=== PATIENT | male | born 1960 | race African-American/Black ===

== ENCOUNTER 2017-03-27 11:53 | Inpatient (IN) | payer OTHER ==
[2017-03-27 12:29] VITALS: BMI 27.3
--- NOTE | 2017-03-27 14:06 | HP ---
CIWA Score - CIWA Score Nausea/Vomitin-No Nausea/No Vomiting Muscle Tremors: 3 Anxiety: 4-Mod. Anxious/Guarded Agitation: 4-Moderately Restless Paroxysmal Sweats: No Perspiration Orientation: 0-Oriented Tacttile Disturbances: 3-Moderate Itch/Numb/Burn Auditory Disturbances: 0-None Visual Disturbances: 0-None Headache: 0-None Present CIWA-Ar Total Score: 14 Admission ROS BHS - HPI Chief Complaint: WITHDRAWAL SX FROM ALCOHOL Allergies/Adverse Reactions: Allergies Allergy/AdvReac Type Severity Reaction Status Date / Time No Known Allergies Allergy Verified 03/27/17 12:37 History of Present Illness: 56 Y/O AA/MALE WITH A HX OF ALCOHOL DEPENDENCE SEEKING DETOX TX. OXY IN TOXICOLOGY BUT PT STATES "MY FRIEND GAVE ME SOMETHING AND SAYS IT'S ASPIRIN". Exam Limitations: No Limitations - Ebola screening Have you traveled outside of the country in the last 21 days: No (N) Have you had contact with anyone from an Ebola affected area: No Have you been sick,other than usual withdrawal symptoms: No Do you have a fever: No - Review of Systems Constitutional: Changes in sleep EENT: reports: Blurred Vision (NEEDS GLASSES), Tearing, Nose Congestion (USES SALINE SOLUTION), Dental Problems (UPPER PARTIAL) Respiratory: reports: No Symptoms reported Cardiac: reports: No Symptoms Reported GI: reports: Nausea, Vomiting : reports: No Symptoms Reported Musculoskeletal: reports: Back Pain, Joint Pain, Muscle Pain Integumentary: reports: Dryness Neuro: reports: Tremors, Unsteady Gait Endocrine: reports: No Symptoms Reported Hematology: reports: No Symptoms Reported Psychiatric: reports: Orientated x3, Anxious, Depressed Other Systems: Reviewed and Negative Patient History - Patient Medical History Hx Anemia: No Hx Asthma: No Hx Chronic Obstructive Pulmonary Disease (COPD): No Hx Cancer: No Hx Cardiac Disorders: No Hx Congestive Heart Failure: No Hx Hypertension: No Hx Hypercholesterolemia: No Hx Pacemaker: No HX Cerebrovascular Accident: No Hx Seizures: No Hx Dementia: No Hx Diabetes: No Hx Gastrointestinal Disorders: Yes (Pt has a hx of acid reflux.) Hx Liver Disease: No Hx Genitourinary Disorders: No Hx Sexually Transmitted Disorders: No Hx Renal Disease (ESRD): No Hx Thyroid Disease: No Hx Human Immunodeficiency Virus (HIV): No (NEGATIVE HX) Hx Hepatitis C: No Hx Depression: Yes (THERAPY IN THE PAST; NO MED.) Hx Suicide Attempt: No Hx Bipolar Disorder: No Hx Schizophrenia: No - Patient Surgical History Past Surgical History: Yes Hx Neurologic Surgery: No Hx Cataract Extraction: No Hx Cardiac Surgery: No Hx Lung Surgery: No Hx Breast Surgery: No Hx Breast Biopsy: No Hx Abdominal Surgery: No Hx Appendectomy: No Hx Cholecystectomy: No Hx Genitourinary Surgery: Yes (SX FOR PROSTATE CA-RADIATION SEED IMPLANT IN 2014 ) Hx Orthopedic Surgery: No Anesthesia Reaction: No - PPD History Previous Implant?: Yes Documented Results: Negative w/o proof Implanted On Prior [facility] Admission?: Yes Date: 06/17/13 Results: 0 mm PPD to be Administered?: Yes - Reproductive History Patient is a Female of Child Bearing Age (11 -55 yrs old): No (MALE) - Smoking Cessation Smoking history: Current every day smoker Have you smoked in the past 12 months: Yes Aproximately how many cigarettes per day: 10 Cigars Per Day: 0 Hx Chewing Tobacco Use: No Initiated information on smoking cessation: Yes 'Breaking Loose' booklet given: 03/27/17 - Substance & Tx. History Hx Alcohol Use: Yes (BEER/VODKA/GIN) Hx Substance Use: No (DENIES) Substance Use Type: Alcohol Hx Substance Use Treatment: Yes ([facility], [facility]) - Substances Abused Alcohol Route: Oral Frequency: Daily Amount used: 2-3 6PKS BEER/ FIFTH OF VODKA Age of first use: 6 Date of Last Use: 03/27/17 Family Disease History - Family Disease History Family History: Denies Admission Physical Exam [facility] - Vital Signs Vital Signs: Vital Signs - 24 hr 03/27/17 12:27 Temperature 98.4 F Pulse Rate 102 H Respiratory 20 Rate Blood Pressure 132/73 - Physical General Appearance: Yes: Moderate Distress, Irritable, Anxious HEENTM: Yes: EOMI, Normocephalic, TEE, Pharynx Normal Respiratory: Yes: Chest Non-Tender, Lungs Clear, Normal Breath Sounds, No Respiratory Distress Neck: Yes: No masses,lesions,Nodules, Supple, Trachea in good position Breast: Yes: Breast Exam Deferred Cardiology: Yes: Regular Rhythm, Regular Rate, S1, S2 Abdominal: Yes: Normal Bowel Sounds, Non Tender, Flat Genitourinary: Yes: Other (N/C) Back: Yes: Within Normal Limits Musculoskeletal: Yes: full range of Motion, Gait Steady Extremities: Yes: Normal Range of Motion, Non-Tender Neurological: Yes: supervisor wash house II-XII NML intact, Fully Oriented, Alert, Motor Strength 5/5 Integumentary: Yes: Dry, Warm Lymphatic: Yes: Within Normal Limits - Diagnostic (1) Alcohol dependence with uncomplicated withdrawal Current Visit: Yes Status: Acute (2) GERD (gastroesophageal reflux disease) Current Visit: Yes Status: Chronic Qualifiers: Esophagitis presence: esophagitis presence not specified Qualified Code(s) : K21.9 - Gastro-esophageal reflux disease without esophagitis (3) Degeneration of cervical intervertebral disc Current Visit: Yes Status: Chronic (4) Nicotine dependence Current Visit: Yes Status: Acute Qualifiers: Nicotine product type: cigarettes Substance use status: in withdrawal Qualified Code(s): F17.213 - Nicotine dependence, cigarettes, with withdrawal Cleared for Admission [facility] - Detox or Rehab [facility] Level of Care: Medically Managed Detox Regimen/Protocol: Librium S Breath Alcohol Content Breath Alcohol Content: 0.048 Urine Drug Screen - Results Drug Screen Negative: No Urine Drug Screen Results: OXY-Oxycodone
[2017-03-27] MEDS ORDERED: MAGNESIUM CITRATE 300 ML BOTTLE PO PRN (14:27)
[2017-03-27] MEDS ORDERED: P-EPHED 60MG/TRIPROLIDI 2.5MG TABLET PO PRN (14:27)
[2017-03-27] MEDS ORDERED: MAG HYDROX/AL HYDROX/SIMETH 30 ML UNIT-DOSE CUP PO PRN (14:27)
[2017-03-27] MEDS ORDERED: MAGNESIUM HYDROX 2400MG/30ML ORAL SUSPENSION 30 ML CUP PO PRN (14:27)
[2017-03-27] MEDS ORDERED: ACETAMINOPHEN 325 MG TABLET (FP) PO PRN (14:27)
[2017-03-27] MEDS ORDERED: IBUPROFEN 400 MG TABLET (FP) PO PRN (14:27)
[2017-03-27] MEDS ORDERED: LOPERAMIDE HCL 2 MG CAPSULE PO PRN (14:27)
[2017-03-27] MEDS ORDERED: guaiFENesin/D-METHORPHAN HB 10 ML UNIT-DOSE CUPS PO PRN (14:27)
[2017-03-27] MEDS ORDERED: chlordiazePOXIDE HCL 25 MG CAPSULE PO ONE (15:21)
[2017-03-27] MEDS: SODIUM CHLORIDE NASAL SPRAY 44 ML BOTTLE NS SCH ×2 (16:25→22:41)
[2017-03-27] MEDS: PANTOPRAZOLE 40 MG TABLET (FP) PO SCH (16:25)
[2017-03-27] MEDS: NICOTINE 14 MG/24 HOURS TOPICAL PATCH TD SCH (16:34)
[2017-03-27 17:02] LABS: HEMATOCRIT 46.2 % (35.4-49); HEMOGLOBIN 15.4 GM/dL (11.7-16.9); MCH 32.9 pg (25.7-33.7); MCHC 33.3 g/dl (32.0-35.9); MEAN CELL VOLUME 98.7 fl (80-96); MEAN PLT VOLUME 9.4 fl (7.5-11.1); PLATELET COUNT 245 K/MM3 (134-434); RBC 4.68 M/mm3 (4.00-5.60); RDW 14.4 % (11.9-15.9); WHITE BLOOD COUNT 10.9 K/mm3 (4.0-10.0)
[2017-03-27 17:30] LABS: ANION GAP 11 (8-16); BILIRUBIN,TOTAL 0.4 mg/dL (0.2-1.0); BLOOD UREA NITROGEN 16 mg/dL (7-18); CALCIUM 9.7 mg/dL (8.5-10.1); CHLORIDE 101 mmol/L (98-107); CO2 27 mmol/L (21-32); GLUCOSE,RANDOM 73 mg/dL (74-106); POTASSIUM 4.1 mmol/L (3.5-5.1); SGOT/AST 30 U/L (15-37); SGPT/ALT 27 U/L (12-78); SODIUM 139 mmol/L (136-145)
[2017-03-27 17:31] LABS: ALK PHOS 57 U/L (45-117); TOT PROT 7.8 g/dl (6.4-8.2)
--- NOTE | 2017-03-27 17:40 | CONSULT ---
[facility] Psychiatric Consult - Data Date of interview: 03/27/17 Admission source: [facility] Identifying data: Second admission to [facility] for this 56 y/o AA male seeking detox treatment on for alcohol dependence.Patient is ,a father of three,domiciled,unemployed and supported on Public Assistance. Substance Abuse History: Confirmed by patient in this session.Se current [facility] report for details : Smoking history: Current every day smoker. Have you smoked in the past 12 months: Yes. Aproximately how many cigarettes per day: 10. Cigars Per Day: 0. Hx Chewing Tobacco Use: No. Initiated information on smoking cessation: Yes. 'Breaking Loose' booklet given: 03/27/17. - Substance & Tx. History. Hx Alcohol Use: Yes (BEER/VODKA/GIN). Hx Substance Use: No ( DENIES). Substance Use Type: Alcohol. Hx Substance Use Treatment: Yes ( [facility] [place]). - Substances Abused. Alcohol. Route: Oral. Frequency: Daily. Amount used: 2-3 6PKS BEER/ FIFTH OF VODKA. Age of first use: 6. Date of Last Use: 03/27/17 Medical History: GERD and a history of prostatic cancer (radiation therapy with seed implant in 2015). Psychiatric History: Distant history of one psychiatric hospitalization (years ago).Patient has no recall of the diagnosis made at the time.Never followed up after discharge.No psychotropic medications or contact with psychiatric OPD care providers.Mr Cabrera denies history of suicide attempts. Physical/Sexual Abuse/Trauma History: Patient denies. Additional Comment: Urine Drug Screen Results: OXY-Oxycodone.Noted. Mental Status Exam - Mental Status Exam Alert and Oriented to: Time, Place, Person Cognitive Function: Good Patient Appearance: Well Groomed Mood: Hopeful, Euthymic Affect: Appropriate, Normal Range Patient Behavior: Fatigued, Cooperative Speech Pattern: Clear, Appropriate Voice Loudness: Normal Thought Process: Intact, Goal Oriented Thought Disorder: Not Present Hallucinations: Denies Suicidal Ideation: Denies Homicidal Ideation: Denies Insight/Judgement: Poor Sleep: Poorly, Difficulty falling asleep Appetite: Good Muscle strength/Tone: Normal Gait/Station: Normal Psychiatric Findings - Problem List ([place] 1, 2,3) (1) Alcohol dependence with uncomplicated withdrawal Current Visit: Yes Status: Acute (2) Nicotine dependence Current Visit: Yes Status: Acute Qualifiers: Nicotine product type: cigarettes Substance use status: in withdrawal Qualified Code(s): F17.213 - Nicotine dependence, cigarettes, with withdrawal (3) Insomnia Current Visit: Yes Status: Acute - Initial Treatment Plan Initial Treatment Plan: Psychoeducation.Support.Detoxification initiated.Sleep hygiene discussed in this session.Ambien 5 mg po hs prn.Patient made aware of risk for parasomnias.Mr Cabrera expressed agreement with this careplan.Observation.
[2017-03-27] MEDS: chlordiazePOXIDE HCL 25 MG CAPSULE PO SCH ×2 (18:30→22:42)
[2017-03-27] MEDS: NICOTINE POLACRILEX 2 MG GUM BUC PRN ×2 (18:36→22:44)
[2017-03-27 19:31] LABS: SICKLE CELL SCREEN NEGATIVE (NEGATIVE)
[2017-03-27] MEDS: FLUTICASONE PROP 0.05% 16 GM NASAL SPRAY NS SCH (19:47)
[2017-03-27] MEDS: AMMONIUM LACTATE 12% LOTION 225 GM BOTTLE TP SCH (22:40)
[2017-03-27] MEDS: THIAMINE HCL 100 MG TABLET (FP) PO SCH (22:40)
[2017-03-27] MEDS: ZOLPIDEM TARTRATE 5 MG TABLET PO PRN (22:42)
[2017-03-28] MEDS: chlordiazePOXIDE HCL 25 MG CAPSULE PO SCH ×4 (05:59→22:24)
[2017-03-28] MEDS: SODIUM CHLORIDE NASAL SPRAY 44 ML BOTTLE NS SCH ×3 (06:00→22:25)
[2017-03-28] MEDS: FLUTICASONE PROP 0.05% 16 GM NASAL SPRAY NS SCH (10:23)
[2017-03-28] MEDS: AMMONIUM LACTATE 12% LOTION 225 GM BOTTLE TP SCH ×2 (10:24→22:25)
[2017-03-28] MEDS: NICOTINE 14 MG/24 HOURS TOPICAL PATCH TD SCH (10:24)
[2017-03-28] MEDS: PRENATAL VITAMINS W/ FOLIC ACID TABLET (FP) PO SCH (10:24)
[2017-03-28] MEDS: PANTOPRAZOLE 40 MG TABLET (FP) PO SCH (10:25)
[2017-03-28] MEDS: NICOTINE POLACRILEX 2 MG GUM BUC PRN ×2 (10:27→13:13)
[2017-03-28] MEDS: MENTHOL/PHENOL 1 EACH UD MM PRN (10:27)
[2017-03-28] MEDS ORDERED: LIDOCAINE VISCOUS 2% ORAL/TOP 20 ML UNIT-DOSE CUP MM PRN (11:00)
--- NOTE | 2017-03-28 11:29 | EKG ---
Test Reason : Blood Pressure : / mmHG Vent. Rate : 100 BPM Atrial Rate : 100 BPM P-R Int : 148 ms QRS Dur : 078 ms QT Int : 346 ms P-R-T Axes : 049 040 044 degrees QTc Int : 446 ms NORMAL SINUS RHYTHM NORMAL ECG NO PREVIOUS ECGS AVAILABLE BASELINE ARTIFACT Confirmed by GARY BERNARD, NORI ([id number]) on 03/28/2017 11:29:18 AM Referred By: Confirmed By:NORI VEGA MD
[2017-03-28] MEDS: chlordiazePOXIDE HCL 25 MG CAPSULE PO PRN (14:05)
--- NOTE | 2017-03-28 16:57 | PN ---
[facility] CIWA - CIWA Score Nausea/Vomitin-No Nausea/No Vomiting Muscle Tremors: 4-Moderate,w/Arms Extend Anxiety: 3 Agitation: 3 Paroxysmal Sweats: 3 Orientation: 0-Oriented Tacttile Disturbances: 3-Moderate Itch/Numb/Burn Auditory Disturbances: 1-Very Mild Visual Disturbances: 2-Mild Sensitivity Headache: 0-None Present CIWA-Ar Total Score: 19 BHS Progress Note (SOAP) Subjective: Tremors, Fatigue, Sweating. Objective: PT. A & O X 3. NO ACUTE DISTRESS. 03/28/17 16:56 Vital Signs Temperature 97.5 F L 03/28/17 13:49 Pulse Rate 102 H 03/28/17 13:49 Respiratory Rate 20 03/28/17 13:49 Blood Pressure 118/75 03/28/17 13:49 O2 Sat by Pulse Oximetry (%) Laboratory Tests 03/27/17 03/27/17 03/27/17 13:00 15:00 15:00 WBC 10.9 H RBC 4.68 Hgb 15.4 Hct 46.2 MCV 98.7 H MCH 32.9 MCHC 33.3 RDW 14.4 Plt Count 245 MPV 9.4 Sickle Cell Screen Negative Sodium 139 Potassium 4.1 Chloride 101 Carbon Dioxide 27 Anion Gap 11 BUN 16 Creatinine 1.0 Creat Clearance w eGFR > 60 Random Glucose 73 L D Calcium 9.7 Total Bilirubin 0.4 D AST 30 ALT 27 Alkaline Phosphatase 57 Total Protein 7.8 Albumin 4.0 RPR Titer HIV 1&2 Antibody Screen Negative HIV P24 Antigen Negative 03/27/17 15:00 WBC RBC Hgb Hct MCV MCH MCHC RDW Plt Count MPV Sickle Cell Screen Sodium Potassium Chloride Carbon Dioxide Anion Gap BUN Creatinine Creat Clearance w eGFR Random Glucose Calcium Total Bilirubin AST ALT Alkaline Phosphatase Total Protein Albumin RPR Titer Nonreactive HIV 1&2 Antibody Screen HIV P24 Antigen LABS NOTED. UA RESULTS PENDING. 03/28/17 16:57 Assessment: 03/28/17 16:56 WITHDRAWAL SYMPTOMS. Plan: CONTINUE DETOX.
[2017-03-28 17:52] LABS: URINE APPEARANCE CLEAR; URINE BILIRUBIN NEGATIVE (NEGATIVE); URINE BLOOD NEGATIVE (NEGATIVE); URINE COLOR YELLOW; URINE GLUCOSE (UA) NEGATIVE (NEGATIVE); URINE KETONE NEGATIVE (NEGATIVE); URINE LEUK ESTERASE NEGATIVE (NEGATIVE); URINE NITRITE NEGATIVE (NEGATIVE); URINE PROTEIN NEGATIVE (NEGATIVE); URINE UROBILINOGEN NEGATIVE mg/dL (0.2-1.0)
[2017-03-28] MEDS: THIAMINE HCL 100 MG TABLET (FP) PO SCH (22:24)
[2017-03-28] MEDS: ZOLPIDEM TARTRATE 5 MG TABLET PO PRN (22:25)
[2017-03-29] MEDS: hydrOXYzine PAMOATE 50 MG CAPSULE (FP) PO PRN (03:56)
[2017-03-29] MEDS: chlordiazePOXIDE HCL 25 MG CAPSULE PO SCH ×2 (05:50→10:23)
[2017-03-29] MEDS: SODIUM CHLORIDE NASAL SPRAY 44 ML BOTTLE NS SCH ×3 (06:53→22:23)
[2017-03-29] MEDS: PRENATAL VITAMINS W/ FOLIC ACID TABLET (FP) PO SCH (10:23)
[2017-03-29] MEDS: PANTOPRAZOLE 40 MG TABLET (FP) PO SCH (10:24)
[2017-03-29] MEDS: FLUTICASONE PROP 0.05% 16 GM NASAL SPRAY NS SCH (10:24)
[2017-03-29] MEDS: AMMONIUM LACTATE 12% LOTION 225 GM BOTTLE TP SCH ×2 (10:26→22:23)
[2017-03-29] MEDS: NICOTINE 14 MG/24 HOURS TOPICAL PATCH TD SCH (10:27)
[2017-03-29] MEDS: NICOTINE POLACRILEX 2 MG GUM BUC PRN (12:30)
[2017-03-29] MEDS: MENTHOL/PHENOL 1 EACH UD MM PRN (12:31)
--- NOTE | 2017-03-29 13:19 | PN ---
S CIWA - CIWA Score Nausea/Vomitin-Mild Nausea/No Vomiting Muscle Tremors: None Anxiety: 4-Mod. Anxious/Guarded Agitation: 4-Moderately Restless Paroxysmal Sweats: 4-Forehead w/Sweat Beads Orientation: 0-Oriented Tacttile Disturbances: 1-Very Mild Itch/Numbness Auditory Disturbances: 0-None Visual Disturbances: 0-None Headache: 2-Mild CIWA-Ar Total Score: 16 BHS Progress Note (SOAP) Subjective: Sweating, nausea, interrupted sleep, chills Objective: 03/29/17 13:17 Last Vital Signs Temp Pulse Resp BP Pulse Ox 97.0 F L 86 18 118/75 03/29/17 09:06 03/29/17 09:06 03/29/17 09:06 03/29/17 09:06 Laboratory Tests 03/27/17 03/27/17 03/27/17 13:00 15:00 15:00 WBC 10.9 H RBC 4.68 Hgb 15.4 Hct 46.2 MCV 98.7 H MCH 32.9 MCHC 33.3 RDW 14.4 Plt Count 245 MPV 9.4 Sickle Cell Screen Negative Sodium 139 Potassium 4.1 Chloride 101 Carbon Dioxide 27 Anion Gap 11 BUN 16 Creatinine 1.0 Creat Clearance w eGFR > 60 Random Glucose 73 L D Calcium 9.7 Total Bilirubin 0.4 D AST 30 ALT 27 Alkaline Phosphatase 57 Total Protein 7.8 Albumin 4.0 Urine Color Urine Appearance Urine pH Ur Specific [place] Urine Protein Urine Glucose (UA) Urine Ketones Urine Blood Urine Nitrite Urine Bilirubin Urine Urobilinogen Ur Leukocyte Esterase RPR Titer HIV 1&2 Antibody Screen Negative HIV P24 Antigen Negative 03/27/17 03/27/17 15:00 15:17 WBC RBC Hgb Hct MCV MCH MCHC RDW Plt Count MPV Sickle Cell Screen Sodium Potassium Chloride Carbon Dioxide Anion Gap BUN Creatinine Creat Clearance w eGFR Random Glucose Calcium Total Bilirubin AST ALT Alkaline Phosphatase Total Protein Albumin Urine Color Yellow Urine Appearance Clear Urine pH 5.0 Ur Specific [place] 1.025 Urine Protein Negative Urine Glucose (UA) Negative Urine Ketones Negative Urine Blood Negative Urine Nitrite Negative Urine Bilirubin Negative Urine Urobilinogen Negative Ur Leukocyte Esterase Negative RPR Titer Nonreactive HIV 1&2 Antibody Screen HIV P24 Antigen Labs noted Assessment: 03/29/17 13:18 Withdrawal symptoms Plan: Continue detox
[2017-03-29] MEDS: chlordiazePOXIDE 5 MG CAPSULE PO SCH ×2 (17:07→22:24)
[2017-03-29] MEDS: THIAMINE HCL 100 MG TABLET (FP) PO SCH (22:24)
[2017-03-29] MEDS: ZOLPIDEM TARTRATE 5 MG TABLET PO PRN (22:26)
[2017-03-30] MEDS: chlordiazePOXIDE HCL 25 MG CAPSULE PO PRN ×2 (02:49→13:21)
[2017-03-30] MEDS: SODIUM CHLORIDE NASAL SPRAY 44 ML BOTTLE NS SCH ×3 (05:24→22:18)
[2017-03-30] MEDS: chlordiazePOXIDE 5 MG CAPSULE PO SCH ×2 (05:24→10:25)
[2017-03-30] MEDS: MENTHOL/PHENOL 1 EACH UD MM PRN ×2 (05:26→14:09)
[2017-03-30] MEDS: FLUTICASONE PROP 0.05% 16 GM NASAL SPRAY NS SCH (10:24)
[2017-03-30] MEDS: PANTOPRAZOLE 40 MG TABLET (FP) PO SCH (10:25)
[2017-03-30] MEDS: AMMONIUM LACTATE 12% LOTION 225 GM BOTTLE TP SCH ×2 (10:26→22:19)
[2017-03-30] MEDS: PRENATAL VITAMINS W/ FOLIC ACID TABLET (FP) PO SCH (10:27)
[2017-03-30] MEDS: NICOTINE 14 MG/24 HOURS TOPICAL PATCH TD SCH (10:27)
[2017-03-30] MEDS: NICOTINE POLACRILEX 2 MG GUM BUC PRN ×2 (10:33→20:45)
--- NOTE | 2017-03-30 13:16 | PN ---
S Progress Note (SOAP) Subjective: DECREASED ANXIETY,SWEATS,TREMORS. DETOX PROCEEDING WELL. Objective: 03/30/17 13:15 Vital Signs Temperature 96.4 F L 03/30/17 09:23 Pulse Rate 90 03/30/17 09:23 Respiratory Rate 20 03/30/17 09:23 Blood Pressure 114/79 03/30/17 09:23 O2 Sat by Pulse Oximetry (%) Laboratory Last Values WBC 10.9 K/mm3 (4.0-10.0) H 03/27/17 15:00 RBC 4.68 M/mm3 (4.00-5.60) 03/27/17 15:00 Hgb 15.4 GM/dL (11.7-16.9) 03/27/17 15:00 Hct 46.2 % (35.4-49) 03/27/17 15:00 MCV 98.7 fl (80-96) H 03/27/17 15:00 MCH 32.9 pg (25.7-33.7) 03/27/17 15:00 MCHC 33.3 g/dl (32.0-35.9) 03/27/17 15:00 RDW 14.4 % (11.9-15.9) 03/27/17 15:00 Plt Count 245 K/MM3 (134-434) 03/27/17 15:00 MPV 9.4 fl (7.5-11.1) 03/27/17 15:00 Sickle Cell Screen Negative (NEGATIVE) 03/27/17 15:00 Sodium 139 mmol/L (136-145) 03/27/17 15:00 Potassium 4.1 mmol/L (3.5-5.1) 03/27/17 15:00 Chloride 101 mmol/L (98-107) 03/27/17 15:00 Carbon Dioxide 27 mmol/L (21-32) 03/27/17 15:00 Anion Gap 11 (8-16) 03/27/17 15:00 BUN 16 mg/dL (7-18) 03/27/17 15:00 Creatinine 1.0 mg/dL (0.7-1.3) 03/27/17 15:00 Creat Clearance w eGFR > 60 (>60) 03/27/17 15:00 Random Glucose 73 mg/dL (74-106) L D 03/27/17 15:00 Calcium 9.7 mg/dL (8.5-10.1) 03/27/17 15:00 Total Bilirubin 0.4 mg/dL (0.2-1.0) D 03/27/17 15:00 AST 30 U/L (15-37) 03/27/17 15:00 ALT 27 U/L (12-78) 03/27/17 15:00 Alkaline Phosphatase 57 U/L (45-117) 03/27/17 15:00 Total Protein 7.8 g/dl (6.4-8.2) 03/27/17 15:00 Albumin 4.0 g/dl (3.4-5.0) 03/27/17 15:00 Urine Color Yellow 03/27/17 15:17 Urine Appearance Clear 03/27/17 15:17 Urine pH 5.0 (5.0-8.0) 03/27/17 15:17 Ur Specific [place] 1.025 (1.001-1.035) 03/27/17 15:17 Urine Protein Negative (NEGATIVE) 03/27/17 15:17 Urine Glucose (UA) Negative (NEGATIVE) 03/27/17 15:17 Urine Ketones Negative (NEGATIVE) 03/27/17 15:17 Urine Blood Negative (NEGATIVE) 03/27/17 15:17 Urine Nitrite Negative (NEGATIVE) 03/27/17 15:17 Urine Bilirubin Negative (NEGATIVE) 03/27/17 15:17 Urine Urobilinogen Negative mg/dL (0.2-1.0) 03/27/17 15:17 Ur Leukocyte Esterase Negative (NEGATIVE) 03/27/17 15:17 RPR Titer Nonreactive (NONREACTIVE) 03/27/17 15:00 HIV 1&2 Antibody Screen Negative 03/27/17 13:00 HIV P24 Antigen Negative 03/27/17 13:00 Assessment: 03/30/17 13:15 DECREASED W/S Plan: CONTINUE DETOX
[2017-03-30] MEDS: chlordiazePOXIDE HCL 10 MG CAPSULE PO SCH ×2 (17:34→22:18)
[2017-03-30] MEDS: THIAMINE HCL 100 MG TABLET (FP) PO SCH (22:18)
[2017-03-30] MEDS: hydrOXYzine PAMOATE 50 MG CAPSULE (FP) PO PRN (22:19)
[2017-03-31] MEDS: chlordiazePOXIDE HCL 10 MG CAPSULE PO SCH ×2 (05:15→10:00)
[2017-03-31] MEDS: SODIUM CHLORIDE NASAL SPRAY 44 ML BOTTLE NS SCH (05:16)
[2017-03-31] MEDS: hydrOXYzine PAMOATE 50 MG CAPSULE (FP) PO PRN (05:17)
[2017-03-31 05:49] VITALS: TEMP 97.4
[2017-03-31] MEDS: MENTHOL/PHENOL 1 EACH UD MM PRN (09:10)
[2017-03-31] MEDS: PANTOPRAZOLE 40 MG TABLET (FP) PO SCH (09:10)
[2017-03-31] MEDS: PRENATAL VITAMINS W/ FOLIC ACID TABLET (FP) PO SCH (09:10)
[2017-03-31] MEDS: FLUTICASONE PROP 0.05% 16 GM NASAL SPRAY NS SCH (09:10)
[2017-03-31] MEDS: NICOTINE 14 MG/24 HOURS TOPICAL PATCH TD SCH (09:13)
[2017-03-31] MEDS: AMMONIUM LACTATE 12% LOTION 225 GM BOTTLE TP SCH (09:13)
[2017-03-31 09:44] VITALS: BP 123/80; PULSE 98
--- NOTE | 2017-03-31 12:12 | DS ---
[facility] Detox Discharge Summary Admission Date: 03/27/17 Discharge Date: 03/31/17 - History Present History: Alcohol Dependence Additional Comments: PATIENT GOING TO [facility] ([facility]) FOR AFTERCARE, PATIENT WAS DISCHARGED FROM DETOX UNIT TO GO TO REHAB UNIT IN STABLE MEDICAL CONDITION. Pertinent Past History: GERD, Insomnia, History of Degeneration of Cervical Intervertebral Discs, Depression, Nicotine Dependence. - Physical Exam Results Vital Signs: Vital Signs Temperature 97.4 F L 03/31/17 09:43 Pulse Rate 98 H 03/31/17 09:43 Respiratory Rate 18 03/31/17 09:43 Blood Pressure 123/80 03/31/17 09:43 O2 Sat by Pulse Oximetry (%) Pertinent Admission Physical Exam Findings: WITHDRAWAL SYMPTOMS. Laboratory Tests 03/27/17 03/27/17 03/27/17 13:00 15:00 15:00 WBC 10.9 H RBC 4.68 Hgb 15.4 Hct 46.2 MCV 98.7 H MCH 32.9 MCHC 33.3 RDW 14.4 Plt Count 245 MPV 9.4 Sickle Cell Screen Negative Sodium 139 Potassium 4.1 Chloride 101 Carbon Dioxide 27 Anion Gap 11 BUN 16 Creatinine 1.0 Creat Clearance w eGFR > 60 Random Glucose 73 L D Calcium 9.7 Total Bilirubin 0.4 D AST 30 ALT 27 Alkaline Phosphatase 57 Total Protein 7.8 Albumin 4.0 Urine Color Urine Appearance Urine pH Ur Specific [place] Urine Protein Urine Glucose (UA) Urine Ketones Urine Blood Urine Nitrite Urine Bilirubin Urine Urobilinogen Ur Leukocyte Esterase RPR Titer HIV 1&2 Antibody Screen Negative HIV P24 Antigen Negative 03/27/17 03/27/17 15:00 15:17 WBC RBC Hgb Hct MCV MCH MCHC RDW Plt Count MPV Sickle Cell Screen Sodium Potassium Chloride Carbon Dioxide Anion Gap BUN Creatinine Creat Clearance w eGFR Random Glucose Calcium Total Bilirubin AST ALT Alkaline Phosphatase Total Protein Albumin Urine Color Yellow Urine Appearance Clear Urine pH 5.0 Ur Specific [place] 1.025 Urine Protein Negative Urine Glucose (UA) Negative Urine Ketones Negative Urine Blood Negative Urine Nitrite Negative Urine Bilirubin Negative Urine Urobilinogen Negative Ur Leukocyte Esterase Negative RPR Titer Nonreactive HIV 1&2 Antibody Screen HIV P24 Antigen LABS NOTED. - Treatment Hospital Course: Detox Protocol Followed, Detoxed Safely, Responded well, Discharged Condition Good, Rehab Referral Accepted Patient has Accepted a Rehab Referral to: [facility] ([facility] . - Medication Discharge Medications: Ambulatory Orders Fluticasone Prop 0.05% Nasal [Flonase -] 1 - 2 spray NS DAILY 03/27/17 Omeprazole 40 mg PO DAILY 03/27/17 Sodium Chloride [Saline Nasal Mist] 126 ml NS TID 03/27/17 - Diagnosis (1) Alcohol dependence with uncomplicated withdrawal Current Visit: Yes Status: Acute (2) Nicotine dependence Current Visit: Yes Status: Chronic Qualifiers: Nicotine product type: cigarettes Substance use status: in withdrawal Qualified Code(s): F17.213 - Nicotine dependence, cigarettes, with withdrawal (3) Degeneration of cervical intervertebral disc Current Visit: Yes Status: Chronic (4) GERD (gastroesophageal reflux disease) Current Visit: Yes Status: Chronic Qualifiers: Esophagitis presence: esophagitis presence not specified Qualified Code(s) : K21.9 - Gastro-esophageal reflux disease without esophagitis (5) Insomnia Current Visit: Yes Status: Acute Qualifiers: Insomnia type: unspecified Qualified Code(s): G47.00 - Insomnia, unspecified - AMA Did Patient Leave Against Medical Advice: No
== END 2017-03-31 12:30 | disposition other institution (70) | DRG 775 ==
LOC: YASAS 11:53 → Y3N 15:19
PROVIDERS: ADMIT Internal Medicine; ATTEND Internal Medicine
PROC: HZ2ZZZZ Detoxification Services for Substance Abuse Treatment (ICD-10-PCS; principal; 2017-03-27)
DX: F10.230 Alcohol dependence with withdrawal, uncomplicated (principal); F17.213 Nicotine dependence, cigarettes, with withdrawal; F32.9 Major depressive disorder, single episode, unspecified; K21.9 Gastro-esophageal reflux disease without esophagitis; G47.00 Insomnia, unspecified; M50.30 Other cervical disc degeneration, unspecified cervical region; Z85.46 Personal history of malignant neoplasm of prostate; Z92.3 Personal history of irradiation
CPT/HCPCS: 36415; 80053; 81003; 85027; 85660; 86593; 87389; 93005; 93010

== ENCOUNTER 2017-03-31 13:23 | Inpatient (IN) | payer OTHER ==
--- NOTE | 2017-03-31 15:08 | HP ---
Psychiatrist Admission - Data Date of interview: 03/31/17 Admission source: [facility] Identifying data: This is the first [facility] inpatient rehabilitation admission for this 56 year old AA male, father of 3, he is unemployed and supported on PA, he is domiciled. Medical History: GERD, treated for prostatic cancer (radiation therapy with seed implant in 2014).Smokes cigaretets 10 day. Psychiatric History: Patient reports history of one psychiatric hospitalization "years ago", never followed up after discharge, denies history of sucidal attempts. Patient reports he is in therapy at [facility] in [place] to learn cope with life challenges. Reports he feels anxious and unable to sleep at nigts, was given ambien while in detox. at [facility]. Physical/Sexual Abuse/Trauma History: Patient reports was bulled as a child, denies history of sexual abuse. Allergies/Adverse Reactions: Allergies Allergy/AdvReac Type Severity Reaction Status Date / Time No Known Allergies Allergy Verified 03/31/17 14:47 Date of last physical exam: 03/27/17 Concur with the findings of this exam: Yes - Substance Abuse/Tx History Hx Alcohol Use: Yes (age of first use 6, daily 2-3 6 pks of beer/fifth of vodka.) Hx Substance Use: No Hx Substance Use Treatment: Yes ([facility] ) Mental Status Exam - Mental Status Exam Alert and Oriented to: Time, Place, Person Cognitive Function: Good Patient Appearance: Well Groomed Mood: Anxious Affect: Appropriate, Mood Congruent Patient Behavior: Appropriate, Cooperative Speech Pattern: Clear, Appropriate Voice Loudness: Normal Thought Process: Intact, Goal Oriented Thought Disorder: Not Present Hallucinations: Denies Suicidal Ideation: Denies Homicidal Ideation: Denies Insight/Judgement: Fair Sleep: Poorly, Difficulty falling asleep Appetite: Fair Muscle strength/Tone: Normal Gait/Station: Normal Psychiatric Findings - Problem List ([place] 1, 2,3) (1) Alcohol induced sleep disorders Current Visit: Yes Status: Acute (2) Alcohol-induced anxiety disorder Current Visit: Yes Status: Acute (3) Chronic alcoholism Current Visit: No Status: Acute (4) Nicotine dependence Current Visit: No Status: Chronic Qualifiers: Nicotine product type: cigarettes Substance use status: in withdrawal Qualified Code(s): F17.213 - Nicotine dependence, cigarettes, with withdrawal - Initial Treatment Plan Initial Treatment Plan: Indications and properties of Belsomra and Vistaril discussed with the patient, patient agreed with recommended treatment, will add Vistaril 50 mg po q 4 hrs PRN and Belsomra 10 mg po hs, will monitor progress.
[2017-03-31] MEDS ORDERED: LOPERAMIDE HCL 2 MG CAPSULE PO PRN (15:33)
[2017-03-31] MEDS ORDERED: MAGNESIUM HYDROX 2400MG/30ML ORAL SUSPENSION 30 ML CUP PO PRN (15:33)
[2017-03-31] MEDS ORDERED: guaiFENesin/D-METHORPHAN HB 10 ML UNIT-DOSE CUPS PO PRN (15:33)
[2017-03-31] MEDS ORDERED: ACETAMINOPHEN 325 MG TABLET (FP) PO PRN (15:33)
[2017-03-31] MEDS ORDERED: MAGNESIUM CITRATE 300 ML BOTTLE PO PRN (15:33)
[2017-03-31] MEDS ORDERED: MAG HYDROX/AL HYDROX/SIMETH 30 ML UNIT-DOSE CUP PO PRN (15:33)
[2017-03-31] MEDS ORDERED: IBUPROFEN 400 MG TABLET (FP) PO PRN (15:33)
[2017-03-31] MEDS ORDERED: P-EPHED 60MG/TRIPROLIDI 2.5MG TABLET PO PRN (15:33)
--- NOTE | 2017-03-31 15:33 | HP ---
[facility] Rehab Assess/Revision - Admission History Admitted to Rehab from: [facility] Date of Admission to Rehab: 03/31/17 - Findings Detox History & Physical reviewed: Yes Concur with findings: Yes Comments/Additional Findings: for rehab as protocol Inpatient Rehab Admission - Initial Determination Are CD services needed?: Yes Free of communicable disease: Yes Not in need of hospitalization: Yes - Rehab Admission Criteria Previous failed treatment: Yes Poor recovery environment: Yes Comorbidities: Yes Patient is meeting Inpatient Rehab admission criteria:: Yes
--- NOTE | 2017-03-31 17:42 | PN ---
[facility] Progress Note Note: RECEIVED NURSE CALL THAT THE PATIENT SMOKE A PACK OF CIGARETTE PER DAY WANTS NICOTINE GUM
[2017-03-31] MEDS: SODIUM CHLORIDE NASAL SPRAY 44 ML BOTTLE NS SCH ×2 (17:48→21:52)
[2017-03-31] MEDS: NICOTINE POLACRILEX 4 MG GUM BUC PRN (17:50)
[2017-03-31] MEDS: SUVOREXANT 10 MG TABLET PO SCH (21:52)
[2017-03-31] MEDS: THIAMINE HCL 100 MG TABLET (FP) PO SCH (21:52)
[2017-03-31] MEDS: MENTHOL/PHENOL 1 EACH UD MM PRN (21:53)
[2017-03-31] MEDS: hydrOXYzine PAMOATE 50 MG CAPSULE (FP) PO PRN (21:55)
[2017-04-01] MEDS: SODIUM CHLORIDE NASAL SPRAY 44 ML BOTTLE NS SCH ×3 (06:49→21:48)
[2017-04-01] MEDS: NICOTINE POLACRILEX 4 MG GUM BUC PRN ×2 (08:33→10:03)
[2017-04-01] MEDS: PRENATAL VITAMINS W/ FOLIC ACID TABLET (FP) PO SCH (10:00)
[2017-04-01] MEDS: FLUTICASONE PROP 0.05% 16 GM NASAL SPRAY NS SCH (10:02)
[2017-04-01] MEDS: hydrOXYzine PAMOATE 50 MG CAPSULE (FP) PO PRN ×3 (10:02→22:03)
[2017-04-01] MEDS: NICOTINE 14 MG/24 HOURS TOPICAL PATCH TD SCH (10:21)
[2017-04-01] MEDS: PANTOPRAZOLE 40 MG TABLET (FP) PO SCH (13:15)
[2017-04-01] MEDS: MENTHOL/PHENOL 1 EACH UD MM PRN ×2 (13:16→17:59)
[2017-04-01] MEDS: THIAMINE HCL 100 MG TABLET (FP) PO SCH (21:48)
[2017-04-01] MEDS: SUVOREXANT 10 MG TABLET PO SCH (21:49)
[2017-04-02] MEDS: SODIUM CHLORIDE NASAL SPRAY 44 ML BOTTLE NS SCH ×3 (06:30→22:44)
[2017-04-02] MEDS: MENTHOL/PHENOL 1 EACH UD MM PRN ×3 (06:34→22:09)
[2017-04-02] MEDS: NICOTINE POLACRILEX 4 MG GUM BUC PRN ×4 (06:35→22:09)
[2017-04-02] MEDS: FLUTICASONE PROP 0.05% 16 GM NASAL SPRAY NS SCH (10:11)
[2017-04-02] MEDS: PRENATAL VITAMINS W/ FOLIC ACID TABLET (FP) PO SCH (10:11)
[2017-04-02] MEDS: PANTOPRAZOLE 40 MG TABLET (FP) PO SCH (10:12)
[2017-04-02] MEDS: NICOTINE 14 MG/24 HOURS TOPICAL PATCH TD SCH (10:12)
[2017-04-02] MEDS: hydrOXYzine PAMOATE 50 MG CAPSULE (FP) PO PRN ×2 (10:13→14:39)
--- NOTE | 2017-04-02 13:18 | PN ---
S Progress Note (SOAP) Subjective: c/o dry feet, would like to start baby asa, raspy voice Objective: 04/02/17 13:16 Vital Signs - 24 hr 04/02/17 04/02/17 04/02/17 00:30 03:30 07:14 Pulse Rate 94 H Respiratory 18 18 18 Rate Blood Pressure 131/82 athletes foot, raspy voice Assessment: 04/02/17 13:17 athletes, foot, tinactin ordered, reveiwed labs with patient aware of macrocytosis 2/2 alcohol use, advised to stop alcohol will f/u with ent for raspy voice use lozenges while herre and gaifenisin.
--- NOTE | 2017-04-02 14:08 | PN ---
Psychiatric Progress Note Vital Signs: Vital Signs Period Temp Pulse Resp BP Sys/Rowe Pulse Ox Last 24 Hr 94 18-18 131/82 Date of Session: 04/02/17 Chief Complaint:: progress update HPI: Patient is addressing alcohol, nicotine dependence comorbid alcohol induced sleep disorder, alcohol induced anxiety disorder. ROS: WNL Current Medications: Active Medications Generic Name Dose Route Start Last Admin Trade Name Freq PRN Reason Stop Dose Admin Acetaminophen 650 mg 03/31/17 15:33 Tylenol - PO Q4H PRN FEVER OR PAIN Al Hydroxide/Mg Hydroxide 30 ml 03/31/17 15:33 Mylanta Oral Suspension - PO Q6H PRN DYSPEPSIA Aspirin 81 mg 04/02/17 13:15 Ecotrin - PO DAILY [place] Doxepin HCl 25 mg 04/02/17 22:00 Sinequan - PO HS [place] Eucalyptus/Menthol/Phenol/Sorbitol 1 each 03/31/17 15:33 04/02/17 13:07 Cepastat Lozenge - MM 1 each Q4H PRN Administration SORE THROAT Fluticasone Propionate 2 spray 04/01/17 10:00 04/02/17 10:11 Flonase - NS 2 spray DAILY [place] Administration Guaifenesin 10 ml 03/31/17 15:33 Robitussin Dm - PO Q6H PRN COUGH Hydroxyzine Pamoate 50 mg 03/31/17 15:14 04/02/17 10:13 Vistaril - PO 50 mg Q4H PRN Administration ANXIETY Ibuprofen 400 mg 03/31/17 15:33 Motrin - PO Q6H PRN PAIN Loperamide HCl 4 mg 03/31/17 15:33 Imodium - PO Q6H PRN DIARRHEA Magnesium Citrate 300 ml 03/31/17 15:33 Citroma - PO Q48H PRN CONSTIPATION Magnesium Hydroxide 30 ml 03/31/17 15:33 Milk Of Magnesia - PO DAILY PRN CONSTIPATION Nicotine 14 mg 04/01/17 10:00 04/02/17 10:12 Nicoderm Patch - TD Not Given DAILY [place] Nicotine Polacrilex 4 mg 03/31/17 17:41 04/02/17 13:09 Nicorette Gum - BUC 4 mg Q2H PRN Administration NICOTINE REPLACEMENT RX Pantoprazole Sodium 40 mg 04/01/17 12:45 04/02/17 10:12 Protonix - PO 40 mg DAILY [place] Administration Multivit/Folic Acid/Iron 1 tab 04/01/17 10:00 04/02/17 10:11 Vitamins (Sjr) - PO 1 tab DAILY [place] Administration Pseudoephedrine/Triprolidine 1 combo 03/31/17 15:33 Actifed - PO TID PRN NASAL CONGESTION Sodium Chloride 1 spray 03/31/17 17:15 04/02/17 06:30 [place]al [place] - NS 1 spray TID [place] Administration Thiamine HCl 100 mg 03/31/17 22:00 04/01/17 21:48 Vitamin B1 - PO 100 mg HS [place] Administration Tolnaftate 1 applic 04/02/17 13:15 Tinactin 1% Cream - TP BID [place] Medication(s) Change(s): d/c belsomra, add sinequan 25 mg po hs. Current Side Effect: No Lab tests ordered: No Lab tests reviewed: Yes Provider note:: Patient adjsusted well to the unit, he was seen today, he c/o insomnia belsomra not effective, after discussion side-effects benefits of sinequan with the patient he agreed to start. 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 Supportive therapy provided, encouraged patient to continue address this issues with his couselor and in groups. Total face to face time:: 35 Mental Status Exam - Mental Status Exam Alert and Oriented to: Time, Place, Person Cognitive Function: Good Patient Appearance: Well Groomed Mood: Anxious Affect: Appropriate, Mood Congruent Patient Behavior: Appropriate, Cooperative Speech Pattern: Clear, Appropriate Voice Loudness: Normal Thought Process: Intact, Goal Oriented Thought Disorder: Not Present Hallucinations: None, Denies Suicidal Ideation: Denies Homicidal Ideation: Denies Insight/Judgement: Fair Sleep: Fair Appetite: Fair Muscle strength/Tone: Normal Gait/Station: Normal Psychiatric Treatment Plan - Problem List (1) Alcohol induced sleep disorders Current Visit: Yes (2) Alcohol-induced anxiety disorder Current Visit: Yes (3) Chronic alcoholism Current Visit: No (4) Nicotine dependence Current Visit: No Qualifiers: Nicotine product type: cigarettes Substance use status: in withdrawal Qualified Code(s): F17.213 - Nicotine dependence, cigarettes, with withdrawal
[2017-04-02] MEDS: ASPIRIN COATED 81 MG TABLET.EC PO SCH (14:38)
[2017-04-02] MEDS: TOLNAFTATE 1% CREAM 15 GM TUBE TP SCH ×2 (14:40→22:45)
[2017-04-02] MEDS: THIAMINE HCL 100 MG TABLET (FP) PO SCH (22:06)
[2017-04-02] MEDS: DOXEPIN HCL 25 MG CAPSULE PO SCH (22:07)
[2017-04-03] MEDS: SODIUM CHLORIDE NASAL SPRAY 44 ML BOTTLE NS SCH ×3 (06:35→21:59)
[2017-04-03] MEDS: hydrOXYzine PAMOATE 50 MG CAPSULE (FP) PO PRN ×3 (06:37→21:58)
[2017-04-03] MEDS: NICOTINE POLACRILEX 4 MG GUM BUC PRN ×3 (06:38→22:00)
[2017-04-03] MEDS: MENTHOL/PHENOL 1 EACH UD MM PRN ×3 (06:39→21:58)
[2017-04-03] MEDS: ASPIRIN COATED 81 MG TABLET.EC PO SCH (10:25)
[2017-04-03] MEDS: NICOTINE 14 MG/24 HOURS TOPICAL PATCH TD SCH (10:25)
[2017-04-03] MEDS: FLUTICASONE PROP 0.05% 16 GM NASAL SPRAY NS SCH (10:25)
[2017-04-03] MEDS: PRENATAL VITAMINS W/ FOLIC ACID TABLET (FP) PO SCH (10:25)
[2017-04-03] MEDS: PANTOPRAZOLE 40 MG TABLET (FP) PO SCH (10:27)
[2017-04-03] MEDS: TOLNAFTATE 1% CREAM 15 GM TUBE TP SCH ×2 (10:27→21:58)
--- NOTE | 2017-04-03 11:21 | PN ---
[facility] Progress Note (SOAP) Subjective: report allergies Objective: 04/03/17 11:20 Vital Signs - 24 hr 04/03/17 04/03/17 04/03/17 00:30 03:30 07:23 Respiratory 16 17 17 Rate labs reviewed Assessment: 04/03/17 11:21 start flonase and claritin
[2017-04-03] MEDS: LORATADINE 10 MG TABLET PO SCH (12:29)
[2017-04-03] MEDS: THIAMINE HCL 100 MG TABLET (FP) PO SCH (21:56)
[2017-04-03] MEDS: DOXEPIN HCL 25 MG CAPSULE PO SCH (21:56)
[2017-04-04] MEDS: SODIUM CHLORIDE NASAL SPRAY 44 ML BOTTLE NS SCH ×3 (07:06→21:46)
[2017-04-04] MEDS: MENTHOL/PHENOL 1 EACH UD MM PRN ×3 (07:09→21:48)
[2017-04-04] MEDS: NICOTINE POLACRILEX 4 MG GUM BUC PRN ×5 (07:10→21:48)
[2017-04-04] MEDS: PRENATAL VITAMINS W/ FOLIC ACID TABLET (FP) PO SCH (09:56)
[2017-04-04] MEDS: ASPIRIN COATED 81 MG TABLET.EC PO SCH (09:56)
[2017-04-04] MEDS: LORATADINE 10 MG TABLET PO SCH (09:56)
[2017-04-04] MEDS: NICOTINE 14 MG/24 HOURS TOPICAL PATCH TD SCH (09:57)
[2017-04-04] MEDS: FLUTICASONE PROP 0.05% 16 GM NASAL SPRAY NS SCH (09:57)
[2017-04-04] MEDS: PANTOPRAZOLE 40 MG TABLET (FP) PO SCH (09:58)
[2017-04-04] MEDS: TOLNAFTATE 1% CREAM 15 GM TUBE TP SCH ×2 (09:58→21:47)
[2017-04-04] MEDS: hydrOXYzine PAMOATE 50 MG CAPSULE (FP) PO PRN ×3 (10:00→21:48)
[2017-04-04] MEDS: THIAMINE HCL 100 MG TABLET (FP) PO SCH (21:46)
[2017-04-04] MEDS: DOXEPIN HCL 25 MG CAPSULE PO SCH (21:46)
[2017-04-05] MEDS ORDERED: ACETAMINOPHEN 325 MG TABLET (FP) ONE (07:02)
[2017-04-05] MEDS: NICOTINE POLACRILEX 4 MG GUM BUC PRN ×4 (07:03→20:00)
[2017-04-05] MEDS: SODIUM CHLORIDE NASAL SPRAY 44 ML BOTTLE NS SCH ×3 (07:04→21:44)
[2017-04-05] MEDS: PRENATAL VITAMINS W/ FOLIC ACID TABLET (FP) PO SCH (10:19)
[2017-04-05] MEDS: PANTOPRAZOLE 40 MG TABLET (FP) PO SCH (10:19)
[2017-04-05] MEDS: ASPIRIN COATED 81 MG TABLET.EC PO SCH (10:19)
[2017-04-05] MEDS: LORATADINE 10 MG TABLET PO SCH (10:19)
[2017-04-05] MEDS: NICOTINE 14 MG/24 HOURS TOPICAL PATCH TD SCH (10:20)
[2017-04-05] MEDS: TOLNAFTATE 1% CREAM 15 GM TUBE TP SCH ×2 (10:20→21:45)
[2017-04-05] MEDS: FLUTICASONE PROP 0.05% 16 GM NASAL SPRAY NS SCH (10:21)
[2017-04-05] MEDS: hydrOXYzine PAMOATE 50 MG CAPSULE (FP) PO PRN ×3 (10:21→19:59)
[2017-04-05] MEDS: MENTHOL/PHENOL 1 EACH UD MM PRN ×3 (10:22→20:00)
[2017-04-05] MEDS: DOXEPIN HCL 25 MG CAPSULE PO SCH (21:44)
[2017-04-05] MEDS: THIAMINE HCL 100 MG TABLET (FP) PO SCH (21:44)
[2017-04-06] MEDS: SODIUM CHLORIDE NASAL SPRAY 44 ML BOTTLE NS SCH ×3 (06:55→22:02)
[2017-04-06] MEDS: ASPIRIN COATED 81 MG TABLET.EC PO SCH (10:29)
[2017-04-06] MEDS: LORATADINE 10 MG TABLET PO SCH (10:29)
[2017-04-06] MEDS: FLUTICASONE PROP 0.05% 16 GM NASAL SPRAY NS SCH (10:30)
[2017-04-06] MEDS: PRENATAL VITAMINS W/ FOLIC ACID TABLET (FP) PO SCH (10:31)
[2017-04-06] MEDS: PANTOPRAZOLE 40 MG TABLET (FP) PO SCH (10:31)
[2017-04-06] MEDS: NICOTINE 14 MG/24 HOURS TOPICAL PATCH TD SCH (10:31)
[2017-04-06] MEDS: TOLNAFTATE 1% CREAM 15 GM TUBE TP SCH ×2 (10:33→22:01)
[2017-04-06] MEDS: hydrOXYzine PAMOATE 50 MG CAPSULE (FP) PO PRN ×3 (10:33→20:19)
[2017-04-06] MEDS: MENTHOL/PHENOL 1 EACH UD MM PRN ×2 (10:33→20:19)
[2017-04-06] MEDS: NICOTINE POLACRILEX 4 MG GUM BUC PRN ×4 (10:33→20:19)
--- NOTE | 2017-04-06 15:41 | PN ---
Psychiatric Progress Note Vital Signs: Vital Signs Period Temp Pulse Resp BP Sys/Rowe Pulse Ox Last 24 Hr 98.2 F 88 18-18 131/85 Date of Session: 04/06/17 Chief Complaint:: insomnia HPI: Patient is addressing alcohol, nicotine dependence comorbid alcohol induced sleep disorder, alcohol induced anxiety disorder. Current Medications: Active Medications Generic Name Dose Route Start Last Admin Trade Name Freq PRN Reason Stop Dose Admin Acetaminophen 650 mg 03/31/17 15:33 04/05/17 07:02 Tylenol - PO 650 mg Q4H PRN Administration FEVER OR PAIN Al Hydroxide/Mg Hydroxide 30 ml 03/31/17 15:33 Mylanta Oral Suspension - PO Q6H PRN DYSPEPSIA Amitriptyline HCl 25 mg 04/06/17 22:00 Elavil - PO HS [place] Aspirin 81 mg 04/02/17 14:04 04/06/17 10:29 Ecotrin - PO 81 mg DAILY [place] Administration Eucalyptus/Menthol/Phenol/Sorbitol 1 each 03/31/17 15:33 04/06/17 10:33 Cepastat Lozenge - MM 1 each Q4H PRN Administration SORE THROAT Fluticasone Propionate 2 spray 04/01/17 10:00 04/06/17 10:30 Flonase - NS 2 spray DAILY [place] Administration Guaifenesin 10 ml 03/31/17 15:33 Robitussin Dm - PO Q6H PRN COUGH Hydroxyzine Pamoate 50 mg 03/31/17 15:14 04/06/17 13:55 Vistaril - PO 50 mg Q4H PRN Administration ANXIETY Ibuprofen 400 mg 03/31/17 15:33 Motrin - PO Q6H PRN PAIN Loperamide HCl 4 mg 03/31/17 15:33 Imodium - PO Q6H PRN DIARRHEA Loratadine 10 mg 04/03/17 11:30 04/06/17 10:29 Claritin - PO 10 mg DAILY [place] Administration Magnesium Citrate 300 ml 03/31/17 15:33 Citroma - PO Q48H PRN CONSTIPATION Magnesium Hydroxide 30 ml 03/31/17 15:33 Milk Of Magnesia - PO DAILY PRN CONSTIPATION Nicotine 14 mg 04/01/17 10:00 04/06/17 10:31 Nicoderm Patch - TD Not Given DAILY [place] Nicotine Polacrilex 4 mg 03/31/17 17:41 04/06/17 13:55 Nicorette Gum - BUC 4 mg Q2H PRN Administration NICOTINE REPLACEMENT RX Pantoprazole Sodium 40 mg 04/01/17 12:45 04/06/17 10:31 Protonix - PO 40 mg DAILY [place] Administration Multivit/Folic Acid/Iron 1 tab 04/01/17 10:00 04/06/17 10:31 Vitamins (Sjr) - PO 1 tab DAILY [place] Administration Sodium Chloride 1 spray 03/31/17 17:15 04/06/17 13:53 [place] Nasal [place] - NS 1 spray TID [place] Administration Thiamine HCl 100 mg 03/31/17 22:00 04/05/17 21:44 Vitamin B1 - PO 100 mg HS [place] Administration Tolnaftate 1 applic 04/02/17 14:05 04/06/17 10:33 Tinactin 1% Cream - TP Not Given BID [facility] Medication(s) Change(s): d/c doxepin, add elavil 25 mg po hs. Current Side Effect: No Lab tests ordered: No Lab tests reviewed: Yes Provider note:: Patient reports that still unable to sleep, doxepin not effective, reports past good response to elavil 25 mg po hs, will change medications, continue to monitor progress. Total face to face time:: 15 Mental Status Exam - Mental Status Exam Alert and Oriented to: Time, Place, Person Cognitive Function: Good Patient Appearance: Well Groomed Mood: Sad, Anxious Affect: Appropriate, Mood Congruent Patient Behavior: Appropriate, Cooperative Speech Pattern: Clear, Appropriate Voice Loudness: Normal Thought Process: Intact, Goal Oriented Thought Disorder: Not Present Hallucinations: Denies Suicidal Ideation: Denies Homicidal Ideation: Denies Insight/Judgement: Fair Sleep: Poorly, Difficulty falling asleep Appetite: Fair Muscle strength/Tone: Normal Gait/Station: Normal Psychiatric Treatment Plan - Problem List (1) Alcohol induced sleep disorders Current Visit: Yes (2) Alcohol-induced anxiety disorder Current Visit: Yes (3) Chronic alcoholism Current Visit: No (4) Nicotine dependence Current Visit: No Qualifiers: Nicotine product type: cigarettes Substance use status: in withdrawal Qualified Code(s): F17.213 - Nicotine dependence, cigarettes, with withdrawal
[2017-04-06] MEDS: AMITRIPTYLINE HCL 25 MG TABLET (FP) PO SCH (22:01)
[2017-04-06] MEDS: THIAMINE HCL 100 MG TABLET (FP) PO SCH (22:01)
[2017-04-07] MEDS: SODIUM CHLORIDE NASAL SPRAY 44 ML BOTTLE NS SCH ×3 (06:28→22:01)
[2017-04-07] MEDS: MENTHOL/PHENOL 1 EACH UD MM PRN ×3 (06:30→22:03)
[2017-04-07] MEDS: hydrOXYzine PAMOATE 50 MG CAPSULE (FP) PO PRN ×5 (06:30→22:43)
[2017-04-07] MEDS: NICOTINE POLACRILEX 4 MG GUM BUC PRN ×5 (06:31→22:03)
[2017-04-07] MEDS: PRENATAL VITAMINS W/ FOLIC ACID TABLET (FP) PO SCH (10:23)
[2017-04-07] MEDS: LORATADINE 10 MG TABLET PO SCH (10:23)
[2017-04-07] MEDS: ASPIRIN COATED 81 MG TABLET.EC PO SCH (10:23)
[2017-04-07] MEDS: FLUTICASONE PROP 0.05% 16 GM NASAL SPRAY NS SCH (10:24)
[2017-04-07] MEDS: NICOTINE 14 MG/24 HOURS TOPICAL PATCH TD SCH (10:24)
[2017-04-07] MEDS: PANTOPRAZOLE 40 MG TABLET (FP) PO SCH (10:24)
[2017-04-07] MEDS: TOLNAFTATE 1% CREAM 15 GM TUBE TP SCH ×2 (10:24→22:01)
--- NOTE | 2017-04-07 13:39 | PN ---
S Progress Note (SOAP) Subjective: [place] [facility] Objective: 04/07/17 13:37 Vital Signs - 24 hr 04/07/17 04/07/17 04/07/17 00:30 03:30 06:55 Temperature 98.1 F Pulse Rate 87 Respiratory 18 20 20 Rate Blood Pressure 126/88 labs reveiwed 04/07/17 13:39 facial eruption, possible contact dermatitis, will give aveeno and steroid cream with clomtimazole Assessment: 04/07/17 13:38 aveeno soap, clotrimazole cream, for rash
[2017-04-07] MEDS: COLLOIDAL OATMEAL 1 BAR EACH TP PRN (14:21)
[2017-04-07] MEDS: CLOTRIMAZOLE 1% CREAM 15 GM TUBE TP SCH ×2 (17:41→22:01)
[2017-04-07] MEDS: THIAMINE HCL 100 MG TABLET (FP) PO SCH (22:01)
[2017-04-07] MEDS: AMITRIPTYLINE HCL 25 MG TABLET (FP) PO SCH (22:01)
[2017-04-08] MEDS: hydrOXYzine PAMOATE 50 MG CAPSULE (FP) PO PRN ×4 (06:01→21:53)
[2017-04-08] MEDS: NICOTINE POLACRILEX 4 MG GUM BUC PRN ×2 (06:02→21:54)
[2017-04-08] MEDS: SODIUM CHLORIDE NASAL SPRAY 44 ML BOTTLE NS SCH ×3 (06:02→22:05)
[2017-04-08] MEDS: PANTOPRAZOLE 40 MG TABLET (FP) PO SCH (10:20)
[2017-04-08] MEDS: PRENATAL VITAMINS W/ FOLIC ACID TABLET (FP) PO SCH (10:20)
[2017-04-08] MEDS: LORATADINE 10 MG TABLET PO SCH (10:20)
[2017-04-08] MEDS: ASPIRIN COATED 81 MG TABLET.EC PO SCH (10:22)
[2017-04-08] MEDS: FLUTICASONE PROP 0.05% 16 GM NASAL SPRAY NS SCH (10:23)
[2017-04-08] MEDS: NICOTINE 14 MG/24 HOURS TOPICAL PATCH TD SCH (10:23)
[2017-04-08] MEDS: CLOTRIMAZOLE 1% CREAM 15 GM TUBE TP SCH ×2 (10:24→22:03)
[2017-04-08] MEDS: TOLNAFTATE 1% CREAM 15 GM TUBE TP SCH ×2 (11:00→22:03)
[2017-04-08] MEDS: AMITRIPTYLINE HCL 25 MG TABLET (FP) PO SCH (21:52)
[2017-04-08] MEDS: THIAMINE HCL 100 MG TABLET (FP) PO SCH (21:52)
[2017-04-08] MEDS: MENTHOL/PHENOL 1 EACH UD MM PRN (21:53)
[2017-04-09] MEDS: SODIUM CHLORIDE NASAL SPRAY 44 ML BOTTLE NS SCH ×3 (06:59→21:37)
[2017-04-09] MEDS: NICOTINE POLACRILEX 4 MG GUM BUC PRN ×3 (07:02→21:39)
[2017-04-09] MEDS: MENTHOL/PHENOL 1 EACH UD MM PRN ×3 (07:02→21:40)
[2017-04-09] MEDS: hydrOXYzine PAMOATE 50 MG CAPSULE (FP) PO PRN ×4 (07:02→21:38)
[2017-04-09] MEDS: PRENATAL VITAMINS W/ FOLIC ACID TABLET (FP) PO SCH (10:29)
[2017-04-09] MEDS: LORATADINE 10 MG TABLET PO SCH (10:29)
[2017-04-09] MEDS: PANTOPRAZOLE 40 MG TABLET (FP) PO SCH (10:29)
[2017-04-09] MEDS: ASPIRIN COATED 81 MG TABLET.EC PO SCH (10:29)
[2017-04-09] MEDS: TOLNAFTATE 1% CREAM 15 GM TUBE TP SCH ×2 (10:30→21:37)
[2017-04-09] MEDS: NICOTINE 14 MG/24 HOURS TOPICAL PATCH TD SCH (10:30)
[2017-04-09] MEDS: FLUTICASONE PROP 0.05% 16 GM NASAL SPRAY NS SCH (10:34)
[2017-04-09] MEDS: CLOTRIMAZOLE 1% CREAM 15 GM TUBE TP SCH ×2 (10:59→21:37)
[2017-04-09] MEDS: AMITRIPTYLINE HCL 25 MG TABLET (FP) PO SCH (21:37)
[2017-04-09] MEDS: THIAMINE HCL 100 MG TABLET (FP) PO SCH (21:37)
[2017-04-10] MEDS: SODIUM CHLORIDE NASAL SPRAY 44 ML BOTTLE NS SCH ×3 (06:47→22:10)
[2017-04-10] MEDS: hydrOXYzine PAMOATE 50 MG CAPSULE (FP) PO PRN ×4 (06:50→22:13)
[2017-04-10] MEDS: NICOTINE POLACRILEX 4 MG GUM BUC PRN ×4 (06:50→22:12)
[2017-04-10] MEDS: PANTOPRAZOLE 40 MG TABLET (FP) PO SCH (10:22)
[2017-04-10] MEDS: FLUTICASONE PROP 0.05% 16 GM NASAL SPRAY NS SCH (10:22)
[2017-04-10] MEDS: PRENATAL VITAMINS W/ FOLIC ACID TABLET (FP) PO SCH (10:22)
[2017-04-10] MEDS: ASPIRIN COATED 81 MG TABLET.EC PO SCH (10:22)
[2017-04-10] MEDS: LORATADINE 10 MG TABLET PO SCH (10:22)
[2017-04-10] MEDS: NICOTINE 14 MG/24 HOURS TOPICAL PATCH TD SCH (10:23)
[2017-04-10] MEDS: TOLNAFTATE 1% CREAM 15 GM TUBE TP SCH ×2 (10:25→22:11)
[2017-04-10] MEDS: CLOTRIMAZOLE 1% CREAM 15 GM TUBE TP SCH ×2 (10:25→22:10)
[2017-04-10] MEDS: MENTHOL/PHENOL 1 EACH UD MM PRN ×2 (10:54→16:42)
[2017-04-10] MEDS: AMITRIPTYLINE HCL 25 MG TABLET (FP) PO SCH (22:09)
[2017-04-10] MEDS: THIAMINE HCL 100 MG TABLET (FP) PO SCH (22:09)
[2017-04-11] MEDS: MENTHOL/PHENOL 1 EACH UD MM PRN ×3 (00:38→10:13)
[2017-04-11] MEDS: SODIUM CHLORIDE NASAL SPRAY 44 ML BOTTLE NS SCH ×3 (05:59→21:51)
[2017-04-11] MEDS: hydrOXYzine PAMOATE 50 MG CAPSULE (FP) PO PRN ×4 (06:00→21:50)
[2017-04-11] MEDS: NICOTINE POLACRILEX 4 MG GUM BUC PRN ×4 (06:00→21:52)
[2017-04-11] MEDS: PANTOPRAZOLE 40 MG TABLET (FP) PO SCH (10:10)
[2017-04-11] MEDS: PRENATAL VITAMINS W/ FOLIC ACID TABLET (FP) PO SCH (10:10)
[2017-04-11] MEDS: LORATADINE 10 MG TABLET PO SCH (10:10)
[2017-04-11] MEDS: ASPIRIN COATED 81 MG TABLET.EC PO SCH (10:10)
[2017-04-11] MEDS: CLOTRIMAZOLE 1% CREAM 15 GM TUBE TP SCH ×2 (10:11→21:51)
[2017-04-11] MEDS: FLUTICASONE PROP 0.05% 16 GM NASAL SPRAY NS SCH (10:11)
[2017-04-11] MEDS: TOLNAFTATE 1% CREAM 15 GM TUBE TP SCH ×2 (10:11→21:50)
[2017-04-11] MEDS: NICOTINE 14 MG/24 HOURS TOPICAL PATCH TD SCH (10:11)
[2017-04-11] MEDS: THIAMINE HCL 100 MG TABLET (FP) PO SCH (21:47)
[2017-04-11] MEDS: AMITRIPTYLINE HCL 25 MG TABLET (FP) PO SCH (21:47)
[2017-04-12] MEDS: SODIUM CHLORIDE NASAL SPRAY 44 ML BOTTLE NS SCH ×3 (06:24→21:44)
[2017-04-12] MEDS: hydrOXYzine PAMOATE 50 MG CAPSULE (FP) PO PRN ×4 (06:26→21:44)
[2017-04-12] MEDS: NICOTINE POLACRILEX 4 MG GUM BUC PRN ×5 (06:27→21:45)
[2017-04-12] MEDS: MENTHOL/PHENOL 1 EACH UD MM PRN ×3 (06:34→21:45)
[2017-04-12] MEDS: NICOTINE 14 MG/24 HOURS TOPICAL PATCH TD SCH (09:56)
[2017-04-12] MEDS: FLUTICASONE PROP 0.05% 16 GM NASAL SPRAY NS SCH (09:56)
[2017-04-12] MEDS: PANTOPRAZOLE 40 MG TABLET (FP) PO SCH (09:56)
[2017-04-12] MEDS: ASPIRIN COATED 81 MG TABLET.EC PO SCH (09:56)
[2017-04-12] MEDS: PRENATAL VITAMINS W/ FOLIC ACID TABLET (FP) PO SCH (09:56)
[2017-04-12] MEDS: LORATADINE 10 MG TABLET PO SCH (09:56)
[2017-04-12] MEDS: CLOTRIMAZOLE 1% CREAM 15 GM TUBE TP SCH ×2 (09:57→21:45)
[2017-04-12] MEDS: TOLNAFTATE 1% CREAM 15 GM TUBE TP SCH ×2 (09:57→21:45)
[2017-04-12] MEDS: COLLOIDAL OATMEAL 1 BAR EACH TP PRN (09:59)
[2017-04-12] MEDS: THIAMINE HCL 100 MG TABLET (FP) PO SCH (21:42)
[2017-04-12] MEDS: AMITRIPTYLINE HCL 25 MG TABLET (FP) PO SCH (21:42)
[2017-04-12] MEDS ORDERED: NICOTINE POLACRILEX 4 MG GUM BUC ONE (21:44)
[2017-04-13] MEDS: SODIUM CHLORIDE NASAL SPRAY 44 ML BOTTLE NS SCH ×3 (06:22→21:40)
[2017-04-13] MEDS: hydrOXYzine PAMOATE 50 MG CAPSULE (FP) PO PRN ×4 (06:25→20:12)
[2017-04-13] MEDS: MENTHOL/PHENOL 1 EACH UD MM PRN (06:26)
[2017-04-13] MEDS: NICOTINE POLACRILEX 4 MG GUM BUC PRN ×4 (06:26→20:12)
[2017-04-13] MEDS: LORATADINE 10 MG TABLET PO SCH (10:24)
[2017-04-13] MEDS: FLUTICASONE PROP 0.05% 16 GM NASAL SPRAY NS SCH (10:24)
[2017-04-13] MEDS: ASPIRIN COATED 81 MG TABLET.EC PO SCH (10:24)
[2017-04-13] MEDS: PANTOPRAZOLE 40 MG TABLET (FP) PO SCH (10:24)
[2017-04-13] MEDS: PRENATAL VITAMINS W/ FOLIC ACID TABLET (FP) PO SCH (10:24)
[2017-04-13] MEDS: CLOTRIMAZOLE 1% CREAM 15 GM TUBE TP SCH ×2 (10:25→21:40)
[2017-04-13] MEDS: TOLNAFTATE 1% CREAM 15 GM TUBE TP SCH ×2 (10:25→21:40)
[2017-04-13] MEDS: NICOTINE 14 MG/24 HOURS TOPICAL PATCH TD SCH (10:25)
[2017-04-13] MEDS: AMITRIPTYLINE HCL 25 MG TABLET (FP) PO SCH (21:39)
[2017-04-13] MEDS: THIAMINE HCL 100 MG TABLET (FP) PO SCH (21:39)
[2017-04-14] MEDS: hydrOXYzine PAMOATE 50 MG CAPSULE (FP) PO PRN ×3 (00:41→10:04)
[2017-04-14] MEDS: NICOTINE POLACRILEX 4 MG GUM BUC PRN ×3 (00:41→09:18)
[2017-04-14] MEDS: MENTHOL/PHENOL 1 EACH UD MM PRN ×2 (00:41→06:54)
[2017-04-14] MEDS: SODIUM CHLORIDE NASAL SPRAY 44 ML BOTTLE NS SCH (06:53)
[2017-04-14 07:11] VITALS: BP 123/79; PULSE 78; TEMP 97.8
[2017-04-14] MEDS: FLUTICASONE PROP 0.05% 16 GM NASAL SPRAY NS SCH (09:16)
[2017-04-14] MEDS: PRENATAL VITAMINS W/ FOLIC ACID TABLET (FP) PO SCH (09:16)
[2017-04-14] MEDS: LORATADINE 10 MG TABLET PO SCH (09:16)
[2017-04-14] MEDS: ASPIRIN COATED 81 MG TABLET.EC PO SCH (09:16)
[2017-04-14] MEDS: PANTOPRAZOLE 40 MG TABLET (FP) PO SCH (09:16)
[2017-04-14] MEDS: CLOTRIMAZOLE 1% CREAM 15 GM TUBE TP SCH (09:17)
[2017-04-14] MEDS: NICOTINE 14 MG/24 HOURS TOPICAL PATCH TD SCH (09:17)
[2017-04-14] MEDS: TOLNAFTATE 1% CREAM 15 GM TUBE TP SCH (09:17)
--- NOTE | 2017-04-14 10:32 | PN ---
Psychiatric Progress Note Vital Signs: Vital Signs Period Temp Pulse Resp BP Sys/Rowe Pulse Ox Last 24 Hr 97.8 F 78 16-18 123/79 Date of Session: 04/14/17 Chief Complaint:: discharge visit HPI: Patient has addressed alcohol, nictone dependence comrobid alcohol induced sleep and anxiety disorder. ROS: GERD medically managed. Current Medications: Active Medications Generic Name Dose Route Start Last Admin Trade Name Freq PRN Reason Stop Dose Admin Acetaminophen 650 mg 03/31/17 15:33 04/05/17 07:02 Tylenol - PO 650 mg Q4H PRN Administration FEVER OR PAIN Al Hydroxide/Mg Hydroxide 30 ml 03/31/17 15:33 Mylanta Oral Suspension - PO Q6H PRN DYSPEPSIA Amitriptyline HCl 25 mg 04/06/17 22:00 04/13/17 21:39 Elavil - PO 25 mg HS [place] Administration Aspirin 81 mg 04/02/17 14:04 04/14/17 09:16 Ecotrin - PO 81 mg DAILY [place] Administration Clotrimazole 1 applic 04/07/17 16:30 04/14/17 09:17 Lotrimin 1% Cream - TP Not Given BID [place] Colloidal Oatmeal 1 applic 04/07/17 13:39 04/12/17 09:59 Aveeno Soap - TP 1 applic DAILY PRN Administration HYGEINE Eucalyptus/Menthol/Phenol/Sorbitol 1 each 03/31/17 15:33 04/14/17 06:54 Cepastat Lozenge - MM 1 each Q4H PRN Administration SORE THROAT Fluticasone Propionate 2 spray 04/01/17 10:00 04/14/17 09:16 Flonase - NS 2 spray DAILY [place] Administration Guaifenesin 10 ml 03/31/17 15:33 Robitussin Dm - PO Q6H PRN COUGH Hydroxyzine Pamoate 50 mg 03/31/17 15:14 04/14/17 10:04 Vistaril - PO 50 mg Q4H PRN Administration ANXIETY Ibuprofen 400 mg 03/31/17 15:33 Motrin - PO Q6H PRN PAIN Loperamide HCl 4 mg 03/31/17 15:33 Imodium - PO Q6H PRN DIARRHEA Loratadine 10 mg 04/03/17 11:30 04/14/17 09:16 Claritin - PO 10 mg DAILY [place] Administration Magnesium Citrate 300 ml 03/31/17 15:33 Citroma - PO Q48H PRN CONSTIPATION Magnesium Hydroxide 30 ml 03/31/17 15:33 Milk Of Magnesia - PO DAILY PRN CONSTIPATION Nicotine 14 mg 04/01/17 10:00 04/14/17 09:17 Nicoderm Patch - TD Not Given DAILY [place] Nicotine Polacrilex 4 mg 03/31/17 17:41 04/14/17 09:18 Nicorette Gum - BUC 4 mg Q2H PRN Administration NICOTINE REPLACEMENT RX Pantoprazole Sodium 40 mg 04/01/17 12:45 04/14/17 09:16 Protonix - PO 40 mg DAILY [place] Administration Multivit/Folic Acid/Iron 1 tab 04/01/17 10:00 04/14/17 09:16 Vitamins (Sjr) - PO 1 tab DAILY [place] Administration Sodium Chloride 1 spray 03/31/17 17:15 04/14/17 06:53 [place] Nasal [place] - NS 1 spray TID [place] Administration Thiamine HCl 100 mg 03/31/17 22:00 04/13/17 21:39 Vitamin B1 - PO 100 mg HS [place] Administration Tolnaftate 1 applic 04/02/17 14:05 04/14/17 09:17 Tinactin 1% Cream - TP Not Given BID [place] Current Side Effect: No Lab tests ordered: No Lab tests reviewed: Yes Provider note:: Patient has completed today his treatment and met his goals, will continue to address his issues at [facility]. He gained insight into his problems with addiction, learned the importance of changing attitude for the utilization of supports available as well ways to improve coping skills to prevent relapses. Patient reports feeling well and Elavil is effective, scripts provided for 30 days supply, patient is stable for discharge today. Total face to face time:: 20 Mental Status Exam - Mental Status Exam Alert and Oriented to: Time, Place, Person Cognitive Function: Good Patient Appearance: Well Groomed Mood: Hopeful Affect: Appropriate, Mood Congruent Patient Behavior: Appropriate, Cooperative Speech Pattern: Clear, Appropriate Voice Loudness: Normal Thought Process: Intact, Goal Oriented Thought Disorder: Not Present Hallucinations: Denies Suicidal Ideation: Denies Homicidal Ideation: Denies Insight/Judgement: Fair Sleep: Fair Appetite: Fair Muscle strength/Tone: Normal Gait/Station: Normal Psychiatric Treatment Plan - Problem List (1) Alcohol induced sleep disorders Current Visit: Yes (2) Alcohol-induced anxiety disorder Current Visit: Yes (3) Chronic alcoholism Current Visit: No (4) Nicotine dependence Current Visit: No Qualifiers: Nicotine product type: cigarettes Substance use status: in withdrawal Qualified Code(s): F17.213 - Nicotine dependence, cigarettes, with withdrawal
== END 2017-04-14 10:30 | disposition home or self-care (01) | DRG 772 ==
LOC: YASAS 13:23 → Y5N 13:25
PROVIDERS: ADMIT Psychiatry & Neurology Psychiatry; ATTEND Psychiatry & Neurology Psychiatry
PROC: HZ42ZZZ Group Counseling for Substance Abuse Treatment, Cognitive-Behavioral (ICD-10-PCS; principal; 2017-03-31)
DX: F10.20 Alcohol dependence, uncomplicated (principal); F10.280 Alcohol dependence with alcohol-induced anxiety disorder; F10.282 Alcohol dependence with alcohol-induced sleep disorder; F17.213 Nicotine dependence, cigarettes, with withdrawal; K21.9 Gastro-esophageal reflux disease without esophagitis; K25.9 Gastric ulcer, unspecified as acute or chronic, without hemorrhage or perforation; J06.9 Acute upper respiratory infection, unspecified; B35.3 Tinea pedis; G47.00 Insomnia, unspecified; Z85.46 Personal history of malignant neoplasm of prostate; Z92.3 Personal history of irradiation